=== PATIENT | male | born 1970 | race African-American/Black ===

== ENCOUNTER 2018-03-17 11:30 | Inpatient (IN) | payer OTHER ==
[2018-03-17 11:35] VITALS: BMI 23.2
--- NOTE | 2018-03-17 14:34 | HP ---
CIWA Score - CIWA Score Nausea/Vomitin Muscle Tremors: 3 Anxiety: 3 Agitation: 3 Paroxysmal Sweats: 1-Minimal Palms Moist Orientation: 0-Oriented Tacttile Disturbances: 2-Mild Itch/Numbness/Burn Auditory Disturbances: 2-Mild Harshness/Frighten Visual Disturbances: 0-None Headache: 2-Mild CIWA-Ar Total Score: 19 Admission ROS BHS - HPI Chief Complaint: i need help to stop drinking alcohol Allergies/Adverse Reactions: Allergies Allergy/AdvReac Type Severity Reaction Status Date / Time sulfamethoxazole Allergy Severe Itching Verified 03/17/18 16:27 [From Bactrim] trimethoprim [From Bactrim] Allergy Severe Itching Verified 03/17/18 16:27 History of Present Illness: thi s47 years old male with alcohol dependence,seeking detox,withdrawal symptom, last treatment in 2009 [facility] syncope alcohol related hiv positive since 2002 weight loss insomnia no significant period of sobriety - Ebola screening Have you traveled outside of the country in the last 21 days: No Have you had contact with anyone from an Ebola affected area: No Have you been sick,other than usual withdrawal symptoms: No Do you have a fever: No - Review of Systems Constitutional: Loss of Appetite, Malaise, Night Sweats, Changes in sleep, Weakness, Unintentional Wgt. Loss EENT: reports: Nose Congestion Respiratory: reports: No Symptoms reported, Other (copd) Cardiac: reports: No Symptoms Reported GI: reports: Nausea, Vomiting, Abdominal cramping : reports: No Symptoms Reported Musculoskeletal: reports: Back Pain, Muscle Pain Integumentary: reports: Dryness Neuro: reports: Tremors Endocrine: reports: No Symptoms Reported Hematology: reports: No Symptoms Reported, Other (hiv) Psychiatric: reports: No Sypmtoms Reported, Judgement Intact, Mood/Affect Appropiate, Orientated x3 (insomnia) Patient History - Patient Medical History Hx Anemia: Yes (no med) Hx Asthma: No Hx Chronic Obstructive Pulmonary Disease (COPD): Yes (on albuterol inhaler) Hx Cancer: No Hx Cardiac Disorders: No Hx Congestive Heart Failure: No Hx Hypertension: No Hx Hypercholesterolemia: No Hx Pacemaker: No HX Cerebrovascular Accident: No Hx Seizures: No Hx Dementia: No Hx Diabetes: No Hx Gastrointestinal Disorders: No Hx Liver Disease: No Hx Genitourinary Disorders: No Hx Sexually Transmitted Disorders: Yes (gonorrhea,syphilis) Hx Renal Disease (ESRD): No Hx Thyroid Disease: No Hx Human Immunodeficiency Virus (HIV): Yes (january 2003) Hx Hepatitis C: No Hx Depression: No Hx Suicide Attempt: No Hx Bipolar Disorder: No Hx Schizophrenia: No Other Medical History: insomnia,no suicidal,no homicidal - Patient Surgical History Other Surgical History: lef inguinal hernia reapir 2015,right inguinal hernia [facility] - PPD History Previous Implant?: Yes Documented Results: Negative w/o proof PPD to be Administered?: Yes - Smoking Cessation Smoking history: Current every day smoker Have you smoked in the past 12 months: Yes Aproximately how many cigarettes per day: 20 Hx Chewing Tobacco Use: No Initiated information on smoking cessation: Yes 'Breaking Loose' booklet given: 03/17/18 - Substance & Tx. History Hx Alcohol Use: Yes Hx Substance Use: No Substance Use Type: Alcohol Hx Substance Use Treatment: Yes ([facility] 2011 rehab) - Substances Abused Alcohol Route: Oral Frequency: Daily Amount used: 1 pint of cognac/3 of 22 ozs of beer Age of first use: 11 Date of Last Use: 03/17/18 Family Disease History - Family Disease History Family Disease History: Other: Father (dsa,alcohol,), Mother (alcohol, crack,) Admission Physical Exam S - Vital Signs Vital Signs: Vital Signs - 24 hr 03/17/18 11:33 Temperature 97.5 F L Pulse Rate 86 Respiratory 18 Rate Blood Pressure 139/92 - Physical General Appearance: Yes: Moderate Distress, Tremorous, Irritable, Sweating, Anxious HEENTM: Yes: Normal ENT Inspection, CAROLINE, Pharynx Normal Respiratory: Yes: Lungs Clear, Normal Breath Sounds, No Respiratory Distress Neck: Yes: Within Normal Limits, Trachea in good position, Thyroid enlarged Breast: Yes: Within Normal Limits Cardiology: Yes: Within Normal Limits, Regular Rhythm, Regular Rate, S1, S2 Abdominal: Yes: Within Normal Limits, Normal Bowel Sounds, Non Tender, Soft Genitourinary: Yes: Within Normal Limits Back: Yes: Muscle Spasm Musculoskeletal: Yes: Back pain, Muscle Pain Extremities: Yes: Tremors 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, Alert Integumentary: Yes: Dry Lymphatic: Yes: Within Normal Limits - Diagnostic (1) Alcohol dependence with uncomplicated withdrawal Current Visit: Yes Status: Acute (2) Syncope Current Visit: Yes Status: Acute (3) HIV (human immunodeficiency virus infection) Current Visit: Yes Status: Acute (4) Nicotine dependence Current Visit: Yes Status: Acute (5) Weight loss Current Visit: Yes Status: Acute (6) Insomnia Current Visit: Yes Status: Acute Cleared for Admission [facility] - Detox or Rehab [facility] Level of Care: Medically Managed Detox Regimen/Protocol: Librium S Breath Alcohol Content Breath Alcohol Content: 108 Urine Drug Screen - Results Drug Screen Negative: No Urine Drug Screen Results: THC-Marijuana, TCA-Tricyclic Antidepress
[2018-03-17] MEDS ORDERED: chlordiazePOXIDE HCL 25 MG CAPSULE PO PRN (14:51)
[2018-03-17] MEDS ORDERED: NICOTINE POLACRILEX 2 MG GUM BUC PRN (14:52)
[2018-03-17] MEDS ORDERED: MAG HYDROX/AL HYDROX/SIMETH 30 ML UNIT-DOSE CUP PO PRN (14:52)
[2018-03-17] MEDS ORDERED: MAGNESIUM HYDROX 2400MG/30ML ORAL SUSPENSION 30 ML CUP PO PRN (14:52)
[2018-03-17] MEDS ORDERED: MENTHOL/PHENOL 1 EACH UD MM PRN (14:52)
[2018-03-17] MEDS ORDERED: hydrOXYzine PAMOATE 50 MG CAPSULE (FP) PO PRN (14:52)
[2018-03-17] MEDS ORDERED: guaiFENesin/D-METHORPHAN HB 10 ML UNIT-DOSE CUPS PO PRN (14:52)
[2018-03-17] MEDS ORDERED: LOPERAMIDE HCL 2 MG CAPSULE PO PRN (14:52)
[2018-03-17] MEDS ORDERED: P-EPHED 60MG/TRIPROLIDI 2.5MG TABLET PO PRN (14:52)
[2018-03-17] MEDS ORDERED: MAGNESIUM CITRATE 300 ML BOTTLE PO PRN (14:52)
[2018-03-17] MEDS ORDERED: chlordiazePOXIDE HCL 25 MG CAPSULE PO ONE (17:30)
[2018-03-17] MEDS: NICOTINE 21 MG/24 HOURS TOPICAL PATCH TD SCH (18:13)
[2018-03-17] MEDS: IBUPROFEN 400 MG TABLET (FP) PO PRN (18:20)
[2018-03-17] MEDS: chlordiazePOXIDE HCL 25 MG CAPSULE PO SCH ×2 (18:23→22:40)
[2018-03-17] MEDS ORDERED: MELATONIN 5 MG TABLETS PO PRN (22:00)
[2018-03-17] MEDS: THIAMINE HCL 100 MG TABLET (FP) PO SCH (22:39)
[2018-03-17 23:13] LABS: URINE APPEARANCE CLEAR; URINE BILIRUBIN NEGATIVE (<2.0 mg/dL); URINE BLOOD NEGATIVE (NEGATIVE); URINE COLOR STRAW; URINE GLUCOSE (UA) NEGATIVE (NEGATIVE); URINE KETONE NEGATIVE (NEGATIVE); URINE LEUK ESTERASE NEGATIVE (NEGATIVE); URINE NITRITE NEGATIVE (NEGATIVE); URINE PROTEIN NEGATIVE (NEGATIVE); URINE UROBILINOGEN NEGATIVE mg/dL (0.2-1.0)
[2018-03-18] MEDS: chlordiazePOXIDE HCL 25 MG CAPSULE PO SCH ×4 (05:55→22:18)
--- NOTE | 2018-03-18 08:50 | EKG ---
Test Reason : Blood Pressure : / mmHG Vent. Rate : 088 BPM Atrial Rate : 088 BPM P-R Int : 120 ms QRS Dur : 104 ms QT Int : 384 ms P-R-T Axes : 062 062 061 degrees QTc Int : 464 ms NORMAL SINUS RHYTHM MINIMAL VOLTAGE CRITERIA FOR LVH, MAY BE NORMAL VARIANT BORDERLINE ECG NO PREVIOUS ECGS AVAILABLE Confirmed by PABLO ANGELA MD ([id number]) on 03/18/2018 8:49:57 AM Referred By: Confirmed By:PABLO ANGELA MD
[2018-03-18] MEDS ORDERED: DARUNAVIR ETHANOLATE 600 MG TAB PO SCH (10:00)
[2018-03-18 10:05] LABS: HEMATOCRIT 41.4 % (35.4-49); MCH 31.4 pg (25.7-33.7); MCHC 33.8 g/dl (32.0-35.9); MEAN CELL VOLUME 92.9 fl (80-96); MEAN PLT VOLUME 8.5 fl (7.5-11.1); PLATELET COUNT 309 K/MM3 (134-434); RBC 4.46 M/mm3 (4.00-5.60); RDW 14.8 % (11.9-15.9); WHITE BLOOD COUNT 8.8 K/mm3 (4.0-10.0)
[2018-03-18 10:19] LABS: ALBUMIN 4.2 g/dl (3.4-5.0); ALK PHOS 85 U/L (45-117); ANION GAP 8 (8-16); BILIRUBIN,TOTAL 0.7 mg/dL (0.2-1.0); BLOOD UREA NITROGEN 11 mg/dL (7-18); CALCIUM 8.7 mg/dL (8.5-10.1); CHLORIDE 108 mmol/L (98-107); CO2 25 mmol/L (21-32); CREATININE 0.9 mg/dL (0.7-1.3); GLUCOSE,RANDOM 94 mg/dL (74-106); POTASSIUM 3.8 mmol/L (3.5-5.1); SGOT/AST 28 U/L (15-37); SGPT/ALT 28 U/L (12-78); SODIUM 141 mmol/L (136-145); TOT PROT 8.2 g/dl (6.4-8.2)
[2018-03-18] MEDS: PRENATAL VITAMINS W/ FOLIC ACID TABLET (FP) PO SCH (10:38)
[2018-03-18] MEDS: DARUNAVIR ETHANOLATE 800 MG TAB PO SCH (10:38)
[2018-03-18] MEDS: RITONAVIR 100 MG TABLET PO SCH (10:39)
[2018-03-18] MEDS: EMTRICITABINE 200MG/TENOFOVIR 300MG PO SCH (10:39)
[2018-03-18] MEDS: NICOTINE 21 MG/24 HOURS TOPICAL PATCH TD SCH (10:39)
[2018-03-18] MEDS: LIDOCAINE VISCOUS 2% ORAL/TOP 20 ML UNIT-DOSE CUP MM PRN ×2 (10:43→22:20)
[2018-03-18] MEDS: IBUPROFEN 400 MG TABLET (FP) PO PRN ×2 (10:43→22:21)
--- NOTE | 2018-03-18 12:03 | CONSULT ---
[facility] Psychiatric Consult - Data Date of interview: 03/18/18 Admission source: [facility] Identifying data: Readmission to [facility] for this 47 y/o AA male seeking detox treatment on for alcohol and cannabis dependence.Patient is single ,a father of six,domiciled,unemployed and supported on Public Assistance. Substance Abuse History: Confirmed by patient in this interview.Details in current [facility] report : Smoking history: Current every day smoker. Have you smoked in the past 12 months: Yes. Aproximately how many cigarettes per day: 20. Hx Chewing Tobacco Use: No. Initiated information on smoking cessation: Yes. 'Breaking Loose' booklet given: 03/17/18. - Substance & Tx. History. Hx Alcohol Use: Yes. Hx Substance Use: No. Substance Use Type: Alcohol. Hx Substance Use Treatment: Yes ([facility] 2012 rehab). - Substances Abused. Alcohol. Route: Oral. Frequency: Daily. Amount used: 1 pint of cognac/3 of 22 ozs of beer. Age of first use: 11. Date of Last Use: 03/17/18 Medical History: HIV infection since 2002 (on HAART medications),weight loss, anemia,COPD,past history of bilateral inguinal herniooraphy and antecedent of treatment for gonorrhea + syphilis. Psychiatric History: Patient denies history of psychiatric illness, hospitalizations or suicide attempts. Physical/Sexual Abuse/Trauma History: Patient denies. Additional Comment: Urine Drug Screen Results: THC-Marijuana, TCA-Tricyclic Antidepressant.Noted. Mental Status Exam - Mental Status Exam Alert and Oriented to: Time, Place, Person Cognitive Function: Good Patient Appearance: Well Groomed Mood: Nervous, Withdrawn Affect: Appropriate, Normal Range Patient Behavior: Fatigued, Appropriate, Cooperative Speech Pattern: Clear, Appropriate Voice Loudness: Normal Thought Process: Intact, Goal Oriented Thought Disorder: Not Present Hallucinations: Denies Suicidal Ideation: Denies Homicidal Ideation: Denies Insight/Judgement: Poor Sleep: Poorly, Difficulty falling asleep Appetite: Poor, Weight loss Gait/Station: Other (not observed ; patient lay in bed through the interview) Psychiatric Findings - Problem List ([place] 1, 2,3) (1) Alcohol dependence with uncomplicated withdrawal Current Visit: Yes Status: Acute (2) Cannabis abuse Current Visit: Yes Status: Acute (3) Nicotine dependence Current Visit: Yes Status: Acute (4) Insomnia Current Visit: Yes Status: Acute - Initial Treatment Plan Initial Treatment Plan: Psychoeducation.Empathy and support.Sleep hygiene.Detoxification in progress.Ambien 5 mg po hs prn at patient's request.Made aware of risk of parasomnias (sleep-walking).Mr Rendon agrees with this careplan.Observation.
--- NOTE | 2018-03-18 14:11 | PN ---
S CIWA - CIWA Score Nausea/Vomitin Muscle Tremors: 3 Anxiety: 3 Agitation: 3 Paroxysmal Sweats: 3 Orientation: 0-Oriented Tacttile Disturbances: 0-None Auditory Disturbances: 0-None Visual Disturbances: 0-None Headache: 0-None Present CIWA-Ar Total Score: 15 BHS Progress Note (SOAP) Subjective: sweats shakes sleep disturbance Objective: 03/18/18 14:10 Sleeping, arousable to verbal disturbance Vital Signs Temperature 97.7 F 03/18/18 09:40 Pulse Rate 78 03/18/18 09:40 Respiratory Rate 18 03/18/18 09:40 Blood Pressure 122/57 03/18/18 09:40 O2 Sat by Pulse Oximetry (%) Laboratory Last Values WBC 8.8 K/mm3 (4.0-10.0) 03/18/18 06:00 RBC 4.46 M/mm3 (4.00-5.60) 03/18/18 06:00 Hgb 14.0 GM/dL (11.7-16.9) 03/18/18 06:00 Hct 41.4 % (35.4-49) 03/18/18 06:00 MCV 92.9 fl (80-96) 03/18/18 06:00 MCH 31.4 pg (25.7-33.7) 03/18/18 06:00 MCHC 33.8 g/dl (32.0-35.9) 03/18/18 06:00 RDW 14.8 % (11.9-15.9) 03/18/18 06:00 Plt Count 309 K/MM3 (134-434) 03/18/18 06:00 MPV 8.5 fl (7.5-11.1) 03/18/18 06:00 Sodium 141 mmol/L (136-145) 03/18/18 06:00 Potassium 3.8 mmol/L (3.5-5.1) 03/18/18 06:00 Chloride 108 mmol/L (98-107) H 03/18/18 06:00 Carbon Dioxide 25 mmol/L (21-32) 03/18/18 06:00 Anion Gap 8 (8-16) 03/18/18 06:00 BUN 11 mg/dL (7-18) 03/18/18 06:00 Creatinine 0.9 mg/dL (0.7-1.3) 03/18/18 06:00 Creat Clearance w eGFR > 60 (>60) 03/18/18 06:00 Random Glucose 94 mg/dL (74-106) 03/18/18 06:00 Calcium 8.7 mg/dL (8.5-10.1) 03/18/18 06:00 Total Bilirubin 0.7 mg/dL (0.2-1.0) 03/18/18 06:00 AST 28 U/L (15-37) 03/18/18 06:00 ALT 28 U/L (12-78) 03/18/18 06:00 Alkaline Phosphatase 85 U/L (45-117) 03/18/18 06:00 Total Protein 8.2 g/dl (6.4-8.2) 03/18/18 06:00 Albumin 4.2 g/dl (3.4-5.0) 03/18/18 06:00 Urine Color Straw 03/17/18 20:33 Urine Appearance Clear 03/17/18 20:33 Urine pH 6.0 (5.0-8.0) 03/17/18 20:33 Ur Specific [place] 1.004 (1.001-1.035) 03/17/18 20:33 Urine Protein Negative (NEGATIVE) 03/17/18 20: Urine Glucose (UA) Negative (NEGATIVE) 03/17/18 20:33 Urine Ketones Negative (NEGATIVE) 03/17/18 20:33 Urine Blood Negative (NEGATIVE) 03/17/18 20: Urine Nitrite Negative (NEGATIVE) 03/17/18 20: Urine Bilirubin Negative (<2.0 mg/dL) 03/17/18 20: Urine Urobilinogen Negative mg/dL (0.2-1.0) 03/17/18 20:33 Ur Leukocyte Esterase Negative (NEGATIVE) 03/17/18 20:33 RPR Titer Nonreactive (NONREACTIVE) 03/18/18 06:00 labs noted Assessment: 03/18/18 14:13 withdrawal sx Plan: continue detox
[2018-03-18] MEDS: ACETAMINOPHEN 325 MG TABLET (FP) PO PRN (17:26)
[2018-03-18] MEDS: THIAMINE HCL 100 MG TABLET (FP) PO SCH (22:18)
[2018-03-18] MEDS: ZOLPIDEM TARTRATE 5 MG TABLET PO PRN (22:18)
[2018-03-19] MEDS: chlordiazePOXIDE HCL 25 MG CAPSULE PO SCH ×2 (05:55→10:32)
[2018-03-19] MEDS: EMTRICITABINE 200MG/TENOFOVIR 300MG PO SCH (10:31)
[2018-03-19] MEDS: DARUNAVIR ETHANOLATE 800 MG TAB PO SCH (10:31)
[2018-03-19] MEDS: PRENATAL VITAMINS W/ FOLIC ACID TABLET (FP) PO SCH (10:31)
[2018-03-19] MEDS: RITONAVIR 100 MG TABLET PO SCH (10:32)
[2018-03-19] MEDS: LIDOCAINE VISCOUS 2% ORAL/TOP 20 ML UNIT-DOSE CUP MM PRN ×2 (10:33→22:15)
[2018-03-19] MEDS: NICOTINE 21 MG/24 HOURS TOPICAL PATCH TD SCH (10:40)
--- NOTE | 2018-03-19 12:12 | PN ---
S CIWA - CIWA Score Nausea/Vomitin-Mild Nausea/No Vomiting Muscle Tremors: 4-Moderate,w/Arms Extend Anxiety: 3 Agitation: 3 Paroxysmal Sweats: 1-Minimal Palms Moist Orientation: 0-Oriented Tacttile Disturbances: 1-Very Mild Itch/Numbness Auditory Disturbances: 0-None Visual Disturbances: 0-None Headache: 0-None Present CIWA-Ar Total Score: 13 BHS Progress Note (SOAP) Subjective: trouble sleeping tremor sweat mild gi distress restlessness Objective: 03/19/18 12:11 Vital Signs Temperature 97.7 F 03/19/18 09:58 Pulse Rate 87 03/19/18 09:58 Respiratory Rate 20 03/19/18 09:58 Blood Pressure 132/81 03/19/18 09:58 O2 Sat by Pulse Oximetry (%) Laboratory Last Values WBC 8.8 K/mm3 (4.0-10.0) 03/18/18 06:00 RBC 4.46 M/mm3 (4.00-5.60) 03/18/18 06:00 Hgb 14.0 GM/dL (11.7-16.9) 03/18/18 06:00 Hct 41.4 % (35.4-49) 03/18/18 06:00 MCV 92.9 fl (80-96) 03/18/18 06:00 MCH 31.4 pg (25.7-33.7) 03/18/18 06:00 MCHC 33.8 g/dl (32.0-35.9) 03/18/18 06:00 RDW 14.8 % (11.9-15.9) 03/18/18 06:00 Plt Count 309 K/MM3 (134-434) 03/18/18 06:00 MPV 8.5 fl (7.5-11.1) 03/18/18 06:00 Sodium 141 mmol/L (136-145) 03/18/18 06:00 Potassium 3.8 mmol/L (3.5-5.1) 03/18/18 06:00 Chloride 108 mmol/L (98-107) H 03/18/18 06:00 Carbon Dioxide 25 mmol/L (21-32) 03/18/18 06:00 Anion Gap 8 (8-16) 03/18/18 06:00 BUN 11 mg/dL (7-18) 03/18/18 06:00 Creatinine 0.9 mg/dL (0.7-1.3) 03/18/18 06:00 Creat Clearance w eGFR > 60 (>60) 03/18/18 06:00 Random Glucose 94 mg/dL (74-106) 03/18/18 06:00 Calcium 8.7 mg/dL (8.5-10.1) 03/18/18 06:00 Total Bilirubin 0.7 mg/dL (0.2-1.0) 03/18/18 06:00 AST 28 U/L (15-37) 03/18/18 06:00 ALT 28 U/L (12-78) 03/18/18 06:00 Alkaline Phosphatase 85 U/L (45-117) 03/18/18 06:00 Total Protein 8.2 g/dl (6.4-8.2) 03/18/18 06:00 Albumin 4.2 g/dl (3.4-5.0) 03/18/18 06:00 Urine Color Straw 03/17/18 20:33 Urine Appearance Clear 03/17/18 20: Urine pH 6.0 (5.0-8.0) 03/17/18 20:33 Ur Specific [place] 1.004 (1.001-1.035) 03/17/18 20:33 Urine Protein Negative (NEGATIVE) 03/17/18 20:33 Urine Glucose (UA) Negative (NEGATIVE) 03/17/18 20:33 Urine Ketones Negative (NEGATIVE) 03/17/18 20:33 Urine Blood Negative (NEGATIVE) 03/17/18 20: Urine Nitrite Negative (NEGATIVE) 03/17/18 20:33 Urine Bilirubin Negative (<2.0 mg/dL) 03/17/18 20: Urine Urobilinogen Negative mg/dL (0.2-1.0) 03/17/18 20:33 Ur Leukocyte Esterase Negative (NEGATIVE) 03/17/18 20:33 RPR Titer Nonreactive (NONREACTIVE) 03/18/18 06:00 lab noted Assessment: 03/19/18 12:11 with drawal sx Plan: continue detox
[2018-03-19] MEDS: chlordiazePOXIDE 5 MG CAPSULE PO SCH ×2 (18:26→22:12)
[2018-03-19] MEDS: ACETAMINOPHEN 325 MG TABLET (FP) PO PRN (19:09)
[2018-03-19] MEDS: THIAMINE HCL 100 MG TABLET (FP) PO SCH (22:12)
[2018-03-19] MEDS: ZOLPIDEM TARTRATE 5 MG TABLET PO PRN (22:14)
[2018-03-19] MEDS: IBUPROFEN 400 MG TABLET (FP) PO PRN (22:14)
[2018-03-20] MEDS: chlordiazePOXIDE 5 MG CAPSULE PO SCH ×2 (05:34→10:53)
[2018-03-20] MEDS: IBUPROFEN 400 MG TABLET (FP) PO PRN ×2 (05:36→17:21)
[2018-03-20] MEDS: LIDOCAINE VISCOUS 2% ORAL/TOP 20 ML UNIT-DOSE CUP MM PRN ×2 (05:39→17:23)
--- NOTE | 2018-03-20 10:24 | PN ---
BHS Progress Note (SOAP) Subjective: ALERT,IRRITABLE,INTERRUPTED SLEEP Objective: 03/20/18 10:23 Vital Signs Temperature 97.9 F 03/20/18 09:31 Pulse Rate 92 H 03/20/18 09:31 Respiratory Rate 20 03/20/18 09:31 Blood Pressure 125/75 03/20/18 09:31 O2 Sat by Pulse Oximetry (%) Assessment: 03/20/18 10:24 WITHDRAWAL SYMPTOM Plan: CONTINUE DETOX,DISCHARGE IN AM
[2018-03-20] MEDS: RITONAVIR 100 MG TABLET PO SCH (10:52)
[2018-03-20] MEDS: EMTRICITABINE 200MG/TENOFOVIR 300MG PO SCH (10:52)
[2018-03-20] MEDS: DARUNAVIR ETHANOLATE 800 MG TAB PO SCH (10:53)
[2018-03-20] MEDS: NICOTINE 21 MG/24 HOURS TOPICAL PATCH TD SCH (10:53)
[2018-03-20] MEDS: PRENATAL VITAMINS W/ FOLIC ACID TABLET (FP) PO SCH (10:53)
[2018-03-20] MEDS: chlordiazePOXIDE HCL 10 MG CAPSULE PO SCH ×2 (17:20→22:22)
[2018-03-20] MEDS: THIAMINE HCL 100 MG TABLET (FP) PO SCH (22:22)
[2018-03-20] MEDS: ZOLPIDEM TARTRATE 5 MG TABLET PO PRN (22:23)
[2018-03-21] MEDS: chlordiazePOXIDE HCL 10 MG CAPSULE PO SCH ×2 (05:12→10:26)
--- NOTE | 2018-03-21 08:01 | PN ---
S Progress Note (SOAP) Subjective: ALERT,NO COMPLAINT Objective: 03/21/18 07:59 Vital Signs Temperature 97.7 F 03/21/18 06:34 Pulse Rate 67 03/21/18 06:34 Respiratory Rate 18 03/21/18 06:34 Blood Pressure 124/73 03/21/18 06:34 O2 Sat by Pulse Oximetry (%) Assessment: 03/21/18 07:59 DETOX COMPLETED,NO WITHDRAWAL SYMPTOM Plan: DISCHARGE TODAY,FOLLOW UP WITH AFTER CARE PROGRAM ARRANGEMENT
--- NOTE | 2018-03-21 08:03 | DS ---
[facility] Detox Discharge Summary Admission Date: 03/17/18 Discharge Date: 03/21/18 - History Present History: Alcohol Dependence Additional Comments: FOLLOW UP WITH AFTER CARE PROGRAM ARRANGEMENT Pertinent Past History: HIV NICOTINE DEPENDENCE WEIGHT LOSS - Physical Exam Results Vital Signs: Vital Signs Temperature 97.7 F 03/21/18 06:34 Pulse Rate 67 03/21/18 06:34 Respiratory Rate 18 03/21/18 06:34 Blood Pressure 124/73 03/21/18 06:34 O2 Sat by Pulse Oximetry (%) Pertinent Admission Physical Exam Findings: WITHDRAWAL SIGNS AND SYMPTOM Vital Signs Temperature 97.7 F 03/21/18 06:34 Pulse Rate 67 03/21/18 06:34 Respiratory Rate 18 03/21/18 06:34 Blood Pressure 124/73 03/21/18 06:34 O2 Sat by Pulse Oximetry (%) Laboratory Last Values WBC 8.8 K/mm3 (4.0-10.0) 03/18/18 06:00 RBC 4.46 M/mm3 (4.00-5.60) 03/18/18 06:00 Hgb 14.0 GM/dL (11.7-16.9) 03/18/18 06:00 Hct 41.4 % (35.4-49) 03/18/18 06:00 MCV 92.9 fl (80-96) 03/18/18 06:00 MCH 31.4 pg (25.7-33.7) 03/18/18 06:00 MCHC 33.8 g/dl (32.0-35.9) 03/18/18 06:00 RDW 14.8 % (11.9-15.9) 03/18/18 06:00 Plt Count 309 K/MM3 (134-434) 03/18/18 06:00 MPV 8.5 fl (7.5-11.1) 03/18/18 06:00 Sodium 141 mmol/L (136-145) 03/18/18 06:00 Potassium 3.8 mmol/L (3.5-5.1) 03/18/18 06:00 Chloride 108 mmol/L (98-107) H 03/18/18 06:00 Carbon Dioxide 25 mmol/L (21-32) 03/18/18 06:00 Anion Gap 8 (8-16) 03/18/18 06:00 BUN 11 mg/dL (7-18) 03/18/18 06:00 Creatinine 0.9 mg/dL (0.7-1.3) 03/18/18 06:00 Creat Clearance w eGFR > 60 (>60) 03/18/18 06:00 Random Glucose 94 mg/dL (74-106) 03/18/18 06:00 Calcium 8.7 mg/dL (8.5-10.1) 03/18/18 06:00 Total Bilirubin 0.7 mg/dL (0.2-1.0) 03/18/18 06:00 AST 28 U/L (15-37) 03/18/18 06:00 ALT 28 U/L (12-78) 03/18/18 06:00 Alkaline Phosphatase 85 U/L (45-117) 03/18/18 06:00 Total Protein 8.2 g/dl (6.4-8.2) 03/18/18 06:00 Albumin 4.2 g/dl (3.4-5.0) 03/18/18 06:00 Urine Color Straw 03/17/18 20:33 Urine Appearance Clear 03/17/18 20:33 Urine pH 6.0 (5.0-8.0) 03/17/18 20:33 Ur Specific [place] 1.004 (1.001-1.035) 03/17/18 20:33 Urine Protein Negative (NEGATIVE) 03/17/18 20:33 Urine Glucose (UA) Negative (NEGATIVE) 03/17/18 20:33 Urine Ketones Negative (NEGATIVE) 03/17/18 20: Urine Blood Negative (NEGATIVE) 03/17/18 20: Urine Nitrite Negative (NEGATIVE) 03/17/18 20: Urine Bilirubin Negative (<2.0 mg/dL) 03/17/18 20: Urine Urobilinogen Negative mg/dL (0.2-1.0) 03/17/18 20:33 Ur Leukocyte Esterase Negative (NEGATIVE) 03/17/18 20: RPR Titer Nonreactive (NONREACTIVE) 03/18/18 06:00 - Treatment Hospital Course: Detox Protocol Followed, Detoxed Safely, Responded well, Discharged Condition Good, Rehab Referral Accepted Patient has Accepted a Rehab Referral to: [facility] - Medication Discharge Medications: Ambulatory Orders Darunavir Ethanolate [Prezista -] 800 mg PO DAILY 03/17/18 Dolutegravir Sodium [Tivicay] 50 mg PO DAILY 03/17/18 Emtricitabine/Tenofovir [Truvada -] 1 tab PO DAILY 03/17/18 Ritonavir [Norvir -] 100 mg PO DAILY 03/17/18 - Diagnosis (1) Alcohol dependence with uncomplicated withdrawal Current Visit: Yes Status: Acute (2) Syncope Current Visit: Yes Status: Acute (3) HIV (human immunodeficiency virus infection) Current Visit: Yes Status: Acute (4) Nicotine dependence Current Visit: Yes Status: Acute (5) Weight loss Current Visit: Yes Status: Acute (6) Insomnia Current Visit: Yes Status: Acute - AMA Did Patient Leave Against Medical Advice: No
[2018-03-21] MEDS: DARUNAVIR ETHANOLATE 800 MG TAB PO SCH (10:24)
[2018-03-21] MEDS: EMTRICITABINE 200MG/TENOFOVIR 300MG PO SCH (10:24)
[2018-03-21] MEDS: RITONAVIR 100 MG TABLET PO SCH (10:24)
[2018-03-21] MEDS: NICOTINE 21 MG/24 HOURS TOPICAL PATCH TD SCH (10:25)
[2018-03-21] MEDS: PRENATAL VITAMINS W/ FOLIC ACID TABLET (FP) PO SCH (10:25)
[2018-03-21] MEDS: LIDOCAINE VISCOUS 2% ORAL/TOP 20 ML UNIT-DOSE CUP MM PRN (10:25)
[2018-03-21 14:09] VITALS: BP 102/70; PULSE 103; TEMP 98.1
== END 2018-03-21 20:11 | disposition other institution (70) | DRG 775 ==
LOC: YASAS 11:30 → Y6N 16:32
PROVIDERS: ADMIT Internal Medicine; ATTEND Internal Medicine
PROC: HZ2ZZZZ Detoxification Services for Substance Abuse Treatment (ICD-10-PCS; principal; 2018-03-17)
DX: F10.230 Alcohol dependence with withdrawal, uncomplicated (principal); F12.20 Cannabis dependence, uncomplicated; F17.210 Nicotine dependence, cigarettes, uncomplicated; Z21 Asymptomatic human immunodeficiency virus [HIV] infection status; G47.00 Insomnia, unspecified; R55 Syncope and collapse; J45.909 Unspecified asthma, uncomplicated; R63.4 Abnormal weight loss; Z68.23 Body mass index [BMI] 23.0-23.9, adult; Z86.19 Personal history of other infectious and parasitic diseases
CPT/HCPCS: 36415; 80053; 81003; 85027; 86593; 93005; 93010

== ENCOUNTER 2018-03-21 21:03 | Inpatient (IN) | payer OTHER ==
[2018-03-21] MEDS ORDERED: MAGNESIUM CITRATE 300 ML BOTTLE PO PRN (21:44)
[2018-03-21] MEDS ORDERED: IBUPROFEN 400 MG TABLET (FP) PO PRN (21:44)
[2018-03-21] MEDS ORDERED: P-EPHED 60MG/TRIPROLIDI 2.5MG TABLET PO PRN (21:44)
[2018-03-21] MEDS ORDERED: MENTHOL/PHENOL 1 EACH UD MM PRN (21:44)
[2018-03-21] MEDS ORDERED: hydrOXYzine PAMOATE 50 MG CAPSULE (FP) PO PRN (21:44)
[2018-03-21] MEDS ORDERED: ACETAMINOPHEN 325 MG TABLET (FP) PO PRN (21:44)
[2018-03-21] MEDS ORDERED: LOPERAMIDE HCL 2 MG CAPSULE PO PRN (21:44)
[2018-03-21] MEDS ORDERED: MAG HYDROX/AL HYDROX/SIMETH 30 ML UNIT-DOSE CUP PO PRN (21:44)
[2018-03-21] MEDS ORDERED: MAGNESIUM HYDROX 2400MG/30ML ORAL SUSPENSION 30 ML CUP PO PRN (21:44)
[2018-03-21] MEDS ORDERED: guaiFENesin/D-METHORPHAN HB 10 ML UNIT-DOSE CUPS PO PRN (21:44)
[2018-03-21] MEDS ORDERED: NICOTINE POLACRILEX 2 MG GUM BUC PRN (21:51)
--- NOTE | 2018-03-21 21:54 | HP ---
[facility] Rehab Assess/Revision - Admission History Admitted to Rehab from: [facility] Date of Admission to Rehab: 03/21/18 - Findings Detox History & Physical reviewed: Yes Concur with findings: Yes Inpatient Rehab Admission - Initial Determination Are CD services needed?: Yes Free of communicable disease: Yes Not in need of hospitalization: Yes - Rehab Admission Criteria Previous failed treatment: Yes Poor recovery environment: Yes Comorbidities: Yes Lacks judgement: Yes Patient is meeting Inpatient Rehab admission criteria:: Yes
[2018-03-21] MEDS: THIAMINE HCL 100 MG TABLET (FP) PO SCH (22:09)
[2018-03-21] MEDS: MELATONIN 5 MG TABLETS PO PRN (22:09)
[2018-03-21 23:02] VITALS: BMI 23.2
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
[2018-03-22] MEDS: NICOTINE 14 MG/24 HOURS TOPICAL PATCH TD SCH (10:41)
[2018-03-22] MEDS: DARUNAVIR ETHANOLATE 800 MG TAB PO SCH (10:41)
[2018-03-22] MEDS: EMTRICITABINE 200MG/TENOFOVIR 300MG PO SCH (10:42)
[2018-03-22] MEDS: PRENATAL VITAMINS W/ FOLIC ACID TABLET (FP) PO SCH (10:42)
[2018-03-22] MEDS: RITONAVIR 100 MG TABLET PO SCH (10:42)
[2018-03-22] MEDS: MELATONIN 5 MG TABLETS PO PRN (21:37)
[2018-03-22] MEDS: THIAMINE HCL 100 MG TABLET (FP) PO SCH (21:37)
[2018-03-23] MEDS ORDERED: PT OWN MED DRAWER 7, Y5N ONE (09:18)
[2018-03-23] MEDS: DARUNAVIR ETHANOLATE 800 MG TAB PO SCH (10:01)
[2018-03-23] MEDS: NICOTINE 14 MG/24 HOURS TOPICAL PATCH TD SCH (10:01)
[2018-03-23] MEDS: PRENATAL VITAMINS W/ FOLIC ACID TABLET (FP) PO SCH (10:01)
[2018-03-23] MEDS: RITONAVIR 100 MG TABLET PO SCH (10:04)
[2018-03-23] MEDS: EMTRICITABINE 200MG/TENOFOVIR 300MG PO SCH (10:04)
[2018-03-23] MEDS: THIAMINE HCL 100 MG TABLET (FP) PO SCH (21:29)
[2018-03-23] MEDS: MELATONIN 5 MG TABLETS PO PRN (21:29)
[2018-03-24] MEDS ORDERED: PT OWN MED DRAWER 7, Y5N ONE (08:47)
[2018-03-24] MEDS: DARUNAVIR ETHANOLATE 800 MG TAB PO SCH (09:53)
[2018-03-24] MEDS: EMTRICITABINE 200MG/TENOFOVIR 300MG PO SCH (09:53)
[2018-03-24] MEDS: PRENATAL VITAMINS W/ FOLIC ACID TABLET (FP) PO SCH (09:53)
[2018-03-24] MEDS: RITONAVIR 100 MG TABLET PO SCH (09:54)
[2018-03-24] MEDS: NICOTINE 14 MG/24 HOURS TOPICAL PATCH TD SCH (09:55)
[2018-03-24] MEDS: THIAMINE HCL 100 MG TABLET (FP) PO SCH (21:03)
[2018-03-24] MEDS: MELATONIN 5 MG TABLETS PO PRN (21:03)
[2018-03-25] MEDS: NICOTINE 14 MG/24 HOURS TOPICAL PATCH TD SCH (09:36)
[2018-03-25] MEDS: EMTRICITABINE 200MG/TENOFOVIR 300MG PO SCH (09:36)
[2018-03-25] MEDS: DARUNAVIR ETHANOLATE 800 MG TAB PO SCH (09:36)
[2018-03-25] MEDS: RITONAVIR 100 MG TABLET PO SCH (09:36)
[2018-03-25] MEDS: PRENATAL VITAMINS W/ FOLIC ACID TABLET (FP) PO SCH (09:36)
[2018-03-25] MEDS: THIAMINE HCL 100 MG TABLET (FP) PO SCH (21:12)
[2018-03-25] MEDS: MELATONIN 5 MG TABLETS PO PRN (21:12)
[2018-03-26] MEDS ORDERED: PT OWN MED DRAWER 7, Y5N ONE ×3 (08:34→22:02)
[2018-03-26] MEDS: DARUNAVIR ETHANOLATE 800 MG TAB PO SCH (09:33)
[2018-03-26] MEDS: NICOTINE 14 MG/24 HOURS TOPICAL PATCH TD SCH (09:33)
[2018-03-26] MEDS: RITONAVIR 100 MG TABLET PO SCH (09:33)
[2018-03-26] MEDS: EMTRICITABINE 200MG/TENOFOVIR 300MG PO SCH (09:33)
[2018-03-26] MEDS: PRENATAL VITAMINS W/ FOLIC ACID TABLET (FP) PO SCH (09:33)
[2018-03-26] MEDS: THIAMINE HCL 100 MG TABLET (FP) PO SCH (21:05)
[2018-03-26] MEDS: MELATONIN 5 MG TABLETS PO PRN (21:05)
[2018-03-27] MEDS: PRENATAL VITAMINS W/ FOLIC ACID TABLET (FP) PO SCH (09:41)
[2018-03-27] MEDS: EMTRICITABINE 200MG/TENOFOVIR 300MG PO SCH (09:41)
[2018-03-27] MEDS: DARUNAVIR ETHANOLATE 800 MG TAB PO SCH (09:41)
[2018-03-27] MEDS: NICOTINE 14 MG/24 HOURS TOPICAL PATCH TD SCH (09:41)
[2018-03-27] MEDS: RITONAVIR 100 MG TABLET PO SCH (09:41)
[2018-03-27] MEDS: THIAMINE HCL 100 MG TABLET (FP) PO SCH (21:03)
[2018-03-27] MEDS: MELATONIN 5 MG TABLETS PO PRN (21:03)
[2018-03-27] MEDS ORDERED: PT OWN MED DRAWER 7, Y5N ONE (22:11)
[2018-03-28] MEDS: PRENATAL VITAMINS W/ FOLIC ACID TABLET (FP) PO SCH (10:21)
[2018-03-28] MEDS: NICOTINE 14 MG/24 HOURS TOPICAL PATCH TD SCH (10:21)
[2018-03-28] MEDS: DARUNAVIR ETHANOLATE 800 MG TAB PO SCH (10:21)
[2018-03-28] MEDS: RITONAVIR 100 MG TABLET PO SCH (10:21)
[2018-03-28] MEDS: EMTRICITABINE 200MG/TENOFOVIR 300MG PO SCH (10:23)
[2018-03-28] MEDS: MELATONIN 5 MG TABLETS PO PRN (21:08)
[2018-03-28] MEDS: THIAMINE HCL 100 MG TABLET (FP) PO SCH (21:08)
[2018-03-29] MEDS: RITONAVIR 100 MG TABLET PO SCH (10:03)
[2018-03-29] MEDS: NICOTINE 14 MG/24 HOURS TOPICAL PATCH TD SCH (10:03)
[2018-03-29] MEDS: PRENATAL VITAMINS W/ FOLIC ACID TABLET (FP) PO SCH (10:03)
[2018-03-29] MEDS: EMTRICITABINE 200MG/TENOFOVIR 300MG PO SCH (10:03)
[2018-03-29] MEDS: DARUNAVIR ETHANOLATE 800 MG TAB PO SCH (10:03)
[2018-03-29] MEDS: THIAMINE HCL 100 MG TABLET (FP) PO SCH (21:11)
[2018-03-29] MEDS: MELATONIN 5 MG TABLETS PO PRN (21:11)
[2018-03-30] MEDS: EMTRICITABINE 200MG/TENOFOVIR 300MG PO SCH (09:41)
[2018-03-30] MEDS: RITONAVIR 100 MG TABLET PO SCH (09:41)
[2018-03-30] MEDS: DARUNAVIR ETHANOLATE 800 MG TAB PO SCH (09:41)
[2018-03-30] MEDS: NICOTINE 14 MG/24 HOURS TOPICAL PATCH TD SCH (09:41)
[2018-03-30] MEDS: PRENATAL VITAMINS W/ FOLIC ACID TABLET (FP) PO SCH (09:41)
--- NOTE | 2018-03-30 12:07 | PN ---
Psychiatric Progress Note Vital Signs: Vital Signs Period Temp Pulse Resp BP Sys/North Pulse Ox Last 24 Hr 98.4 F 84 18-18 111/79 Date of Session: 03/30/18 Chief Complaint:: Insomnia HPI: Patient addressing Alcohol Dependence comorbid with Nicotine Dependence and Alcohol-Induced Sleep Disorder ROS: HIV, Anemia Current Medications: Active Medications Generic Name Dose Route Start Last Admin Trade Name Freq PRN Reason Stop Dose Admin Acetaminophen 650 mg 03/21/18 21:44 Tylenol - PO Q4H PRN FEVER Al Hydroxide/Mg Hydroxide 30 ml 03/21/18 21:44 Mylanta Oral Suspension - PO Q6H PRN DYSPEPSIA Darunavir 800 mg 03/22/18 10:00 03/30/18 09:41 Prezista - PO 800 mg DAILY ASHA Administration Emtricitabine/Tenofovir 1 tab 03/22/18 10:00 03/30/18 09:41 Truvada PO 1 tab DAILY ASHA Administration Guaifenesin 10 ml 03/21/18 21:44 Robitussin Dm - PO Q6H PRN COUGH Hydroxyzine Pamoate 50 mg 03/21/18 21:44 Vistaril - PO Q4H PRN AGITATION Ibuprofen 400 mg 03/21/18 21:44 Motrin - PO Q6H PRN Pain Level 4-6 Loperamide HCl 4 mg 03/21/18 21:44 Imodium - PO Q6H PRN DIARRHEA Magnesium Citrate 300 ml 03/21/18 21:44 Citroma - PO Q48H PRN CONSTIPATION Magnesium Hydroxide 30 ml 03/21/18 21:44 Milk Of Magnesia - PO DAILY PRN CONSTIPATION Melatonin 5 mg 03/21/18 22:00 03/29/18 21:11 Melatonin PO 5 mg HS PRN Administration INSOMNIA Nicotine 14 mg 03/22/18 10:00 03/30/18 09:41 Nicoderm Patch - TD 14 mg DAILY ASHA Administration Nicotine Polacrilex 2 mg 03/21/18 21:51 Nicorette Gum - BUC Q2H PRN NICOTINE REPLACEMENT RX Multivit/Folic Acid/Iron 1 tab 03/22/18 10:00 03/30/18 09:41 Vitamins (Sjr) - PO 1 tab DAILY ASHA Administration Pseudoephedrine/Triprolidine 1 combo 03/21/18 21:44 Actifed - PO TID PRN NASAL CONGESTION Ritonavir 100 mg 03/22/18 10:00 03/30/18 09:41 Norvir - PO 100 mg DAILY ASHA Administration Thiamine HCl 100 mg 03/21/18 22:00 03/29/18 21:11 Vitamin B1 - PO 100 mg HS ASHA Administration Medication(s) Change(s): Increase Melatonin dosage to 10 mg po HS prn for insomnia Current Side Effect: No Lab tests ordered: Yes Lab tests reviewed: Yes Provider note:: Patient reports experiencing difficulty to sleep. 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 Discussed with patient about increasing Melatonin dosage and he agreed with that plan Total face to face time:: 15 Mental Status Exam - Mental Status Exam Alert and Oriented to: Time, Place, Person Cognitive Function: Fair Patient Appearance: Well Groomed Mood: Hopeful, Euthymic Affect: Appropriate Patient Behavior: Cooperative Speech Pattern: Clear Voice Loudness: Normal Thought Process: Intact, Goal Oriented Thought Disorder: Not Present Hallucinations: Denies Suicidal Ideation: Denies Homicidal Ideation: Denies Insight/Judgement: Fair Sleep: Poorly Appetite: Good Muscle strength/Tone: Normal Gait/Station: Normal Psychiatric Treatment Plan - Problem List (1) Alcohol dependence Current Visit: Yes (2) Nicotine dependence Current Visit: No (3) Alcohol-induced sleep disorder Current Visit: Yes (4) HIV (human immunodeficiency virus infection) Current Visit: No (5) Anemia Current Visit: Yes Initial treatment plan: 1) Discontinue Melatonin as currently ordered. 2) Start Melatonin 10 mg po HS prn for insomnia. 3) Monitor progress
[2018-03-30] MEDS: MELATONIN 5 MG TABLETS PO PRN (21:03)
[2018-03-30] MEDS: THIAMINE HCL 100 MG TABLET (FP) PO SCH (21:03)
[2018-03-31] MEDS: NICOTINE 14 MG/24 HOURS TOPICAL PATCH TD SCH (09:39)
[2018-03-31] MEDS: PRENATAL VITAMINS W/ FOLIC ACID TABLET (FP) PO SCH (09:39)
[2018-03-31] MEDS: DARUNAVIR ETHANOLATE 800 MG TAB PO SCH (09:39)
[2018-03-31] MEDS: RITONAVIR 100 MG TABLET PO SCH (09:40)
[2018-03-31] MEDS ORDERED: PT OWN MED DRAWER 7, Y5N ONE (09:41)
[2018-03-31] MEDS: EMTRICITABINE 200MG/TENOFOVIR 300MG PO SCH (09:41)
[2018-03-31] MEDS: MELATONIN 5 MG TABLETS PO PRN (21:11)
[2018-03-31] MEDS: THIAMINE HCL 100 MG TABLET (FP) PO SCH (21:11)
[2018-04-01 06:44] VITALS: BP 104/76; PULSE 81; TEMP 98.1
[2018-04-01] MEDS ORDERED: PT OWN MED DRAWER 7, Y5N ONE (08:53)
[2018-04-01] MEDS: DARUNAVIR ETHANOLATE 800 MG TAB PO SCH (09:38)
[2018-04-01] MEDS: RITONAVIR 100 MG TABLET PO SCH (09:38)
[2018-04-01] MEDS: PRENATAL VITAMINS W/ FOLIC ACID TABLET (FP) PO SCH (09:38)
[2018-04-01] MEDS: EMTRICITABINE 200MG/TENOFOVIR 300MG PO SCH (09:38)
[2018-04-01] MEDS: NICOTINE 14 MG/24 HOURS TOPICAL PATCH TD SCH (09:39)
--- NOTE | 2018-04-01 14:53 | PN ---
[facility] Progress Note Note: Patient wants to leave today before his due date to fully complete this program. He will continue to address his issues at [facility] in the [facility] for outpatient treatment. Refer to nursing staff note for further information. Patient is stable for discharge today
== END 2018-04-01 15:45 | disposition home or self-care (01) | DRG 772 ==
LOC: YASAS 21:03 → Y3W 21:04
PROVIDERS: ADMIT Psychiatry & Neurology Psychiatry; ATTEND Psychiatry & Neurology Psychiatry
PROC: HZ42ZZZ Group Counseling for Substance Abuse Treatment, Cognitive-Behavioral (ICD-10-PCS; principal; 2018-03-21)
DX: F10.20 Alcohol dependence, uncomplicated (principal); F17.210 Nicotine dependence, cigarettes, uncomplicated; F10.282 Alcohol dependence with alcohol-induced sleep disorder; D64.9 Anemia, unspecified; Z21 Asymptomatic human immunodeficiency virus [HIV] infection status